=== PATIENT | female | born 1960 | race Caucasian/White ===

== ENCOUNTER 2020-07-02 15:00 | Emergency (ER) | payer OTHER ==
[~2020-07-02] VITALS: Ht 180.3 cm; Wt 79.8 kg
[2020-07-02] MEDS ORDERED: HYDROCODONE/APAP 5MG-325MG TAB PO STA (17:16)
[2020-07-02] MEDS ORDERED: TYLENOL # 31 EA PO (17:17)
[2020-07-02] MEDS ORDERED: HYDROCODONE/APAP 5MG-325MG TAB ONE (17:28)
== END 2020-07-02 17:46 | disposition home or self-care (01) ==
LOC: FSED 15:20
DX: M54.31 Sciatica, right side (principal)
CPT/HCPCS: 72100; 80048; 82553; 84484; 93970; 93971; 99283